=== PATIENT | female | born 1985 | race Caucasian/White ===

== ENCOUNTER 2022-09-07 00:52 | Emergency (ER) | payer BC, OTHER ==
[2022-09-07 01:00] VITALS: BP 109/81; PULSE 74; RESP 16; TEMP 98.6
== END 2022-09-07 01:45 | disposition home or self-care (01) ==
LOC: FER 00:52
DX: S90.412A Abrasion, left great toe, initial encounter (principal); X58.XXXA Exposure to other specified factors, initial encounter
CPT/HCPCS: 99282-25

== ENCOUNTER 2023-08-25 23:22 | Emergency (ER) | payer BC ==
[2023-08-25 23:30] VITALS: BP 109/81; PULSE 74; RESP 16; TEMP 97.8; BMI 21.2
== END 2023-08-25 23:56 | disposition home or self-care (01) ==
LOC: FER 23:22
PROC: 0XQPXZZ Repair Left Index Finger, External Approach (ICD-10-PCS; principal; 2023-08-25)
DX: S61.211A Laceration without foreign body of left index finger without damage to nail, initial encounter (principal); W27.2XXA Contact with scissors, initial encounter
CPT/HCPCS: 99283-25